=== PATIENT | male | born 1985 | race Caucasian/White ===

== ENCOUNTER 2019-05-07 03:44 | Emergency (ER) | payer BC, SELFPAY ==
[2019-05-07 03:47] VITALS: BP 149/94; PULSE 85; RESP 18; TEMP 36.4; O2SAT 100
--- NOTE | 2019-05-07 04:10 | ED.EPISTAXIS ---
HPI - Epistaxis General Chief complaint: Epistaxis Stated complaint: Nosebleed Time Seen by Provider: 05/07/19 04:09 History of Present Illness HPI Narrative: Awoke from sleep around 0300 with bleeding from the left nares. Attempted pressure and packing without success. bleeding stopped shortly prior to arrival. He recently recovered from the FLU. he denies any additional symptoms at this time. Related Data Allergies Allergy/AdvReac Type Severity Reaction Status Date / Time No Known Allergies Allergy Unverified 10/03/18 17:15 Review of Systems Review of Systems: All systems reviewed & are unremarkable except as noted in HPI and below Constitutional: Constitutional: Denies fever(s) and Denies weakness Eyes: Eyes: Denies change in vision ENT: Reports epistaxis and Denies sore throat Cardiovascular: Cardiovascular: Denies chest pain Respiratory: Respiratory: Denies dyspnea Gastrointestinal: Gastrointestinal: Denies nausea and Denies vomiting Neurologic: Denies dizziness and Denies weakness Exam Const: General: healthy appearing, no acute distress and alert Orientation/consciousness: patient oriented x3 Limitations: no limitations HENMT: Other: No active bleeding. site of recent bleeding seen over left nasal septum Resp: Effort & Inspection: normal respiratory effort Auscultation: clear to auscultation bilaterally Cardio: Rate: regular rate Rhythm: regular rhythm Neuro: General: patient oriented x3 and moves all extremities Speech: normal speech Psych: Affect: normal affect Course Vital Signs Vital signs: Vital Signs Temperature 36.4 C 05/07/19 03:47 Pulse Rate 85 05/07/19 03:47 Respiratory Rate 18 05/07/19 03:47 Blood Pressure 149/94 H 05/07/19 03:47 Pulse Oximetry 100 05/07/19 03:47 Temperature 36.4 C 05/07/19 03:47 Pulse Rate 87 05/07/19 04:42 Respiratory Rate 15 05/07/19 04:42 Blood Pressure 158/108 H 05/07/19 04:42 Pulse Oximetry 97 05/07/19 04:42 Discharge Plan Discharge Clinical Impression: Epistaxis Patient Disposition: Home, Self-Care Condition: Stable Instructions: Nosebleed (ED) Prescriptions: New sodium chloride [[place] Nasal] 0.65 % aerosol,spray 2 spray NASAL Q4H Qty: 50 RF: 0 Follow-up/Referrals: UNKNOWN,DOCTOR [Primary Care Provider] -
[2019-05-07 04:42] VITALS: BP 158/108; PULSE 87; RESP 15; O2SAT 97
[2019-05-07] MEDS: OXYMETAZOLINE HCL 0.05% NAS 15 ML BTL (*BKC) 2 SPRAY NASAL (05:14)
[2019-05-07 06:40] VITALS: BP 113/82; PULSE 78; RESP 19; O2SAT 95
== END 2019-05-07 06:40 | disposition home or self-care (01) ==
PROVIDERS: Emergency Provider Emergency Medicine
DX: R04.0 Epistaxis (principal)
CPT/HCPCS: 99283; A9270

== ENCOUNTER 2021-04-22 06:25 | Emergency (ER) | payer BC, SELFPAY ==
[2021-04-22 06:31] VITALS: BP 134/84; PULSE 92; RESP 16; TEMP 36.4; O2SAT 99
[2021-04-22 07:10] LABS: Basophils Percent Auto 0.1 % (0.2-1.2); Eosinophils Percent Auto 0.2 % (0-4.4); Hematocrit 46.6 % (42.0-52.0); Hemoglobin 16.6 g/dL (14.0-18.0); Immature Granulocyte Absolute 0.03 K/mm3 (0.00-0.031); Immature Granulocyte Percent A 0.2 % (0-0.5); Lymphocytes Absolute Auto 0.61 K/mm3 (0.9-3.2); Lymphocytes Percent Auto 4.8 % (18.3-44.2); Mean Corpuscular HGB Conc 35.6 g/dl (32-36); Mean Corpuscular Hemoglobin 29.6 pg (26-34); Mean Corpuscular Volume 83.1 fl (80-100); Mean Platelet Volume 10.5 fl (7.4-10.4); Monocytes Absolute Auto 0.5 K/mm3 (0.1-0.6); Monocytes Percent Auto 3.8 % (2.6-8.5); Neutrophils Absolute Auto 11.6 K/mm3 (1.3-6.7); Neutrophils Percent Auto 90.9 % (45.5-73.1); Platelet Count Result 159 k/mm3 (150-375); Red Blood Count 5.61 M/mm3 (4.6-6.20); Red Cell Distribution Width 12.4 % (11.5-14.5); White Blood Count 12.7 K/mm3 (4.5-10.0)
[2021-04-22 07:17] LABS: Alanine Aminotransferase 40 U/L (4-50); Albumin Level 4.9 g/dL (3.5-5.1); Alkaline Phosphatase 127 U/L (38-126); Anion Gap 12 mmol/L (8-16); Aspartate Amino Transferase 31 U/L (17-59); Bilirubin,Total 1.1 mg/dL (0.2-1.3); Blood Urea Nitrogen 21 mg/dL (9-20); Carbon Dioxide 25 mmol/L (22-30); Chloride 102 mmol/L (98-107); Estimated CRCL calculation 109 ml/min; Estimated Glomerular Filt Rate > 60; Glucose 167 mg/dL (65-110); Lipase 58 U/L (23-300); Potassium 3.9 mmol/L (3.4-5.0); Sodium 139 mmol/L (137-145)
[2021-04-22 08:17] LABS: Add Urine Microscopic? YES; Appearance Urine Clear (Clear); Bilirubin Urine Negative (Negative); Blood Urine Negative (Negative); Color Urine Yellow (Yellow); Glucose Urine UA Negative (Negative); Ketones Urine Trace mg/dL (Negative); Leukocyte Esterase Ur Negative LEU/UL (Negative); Mucus Urine Few /lpf; Nitrate Urine Negative (Negative); Protein Urine 1+ mg/dL (Negative); RBC Urine 0-2 /hpf (0-2); Squamous Epithelial Cell Urine Rare /hpf (Few); WBC Urine 0-3 /hpf
--- NOTE | 2021-04-22 08:17 | ED.GENADULT ---
HPI - General Adult General Chief complaint: Nausea/Vomiting/Diarrhea Stated complaint: vomiting since 8pm last night Time Seen by Provider: 04/22/21 07:36 Source: patient and RN notes reviewed Mode of arrival: ambulatory Limitations: no limitations History of Present Illness HPI narrative: Patient reports nausea, vomiting a lot, diarrhea 3-4 times since 8 PM last night. Patient reported that his daughter had similar symptoms 2 to 3 days ago. Patient had to doses of COVID-vaccine. History of hypertension. Does not smoke or drink or uses marijuana. Related Data Allergies Allergy/AdvReac Type Severity Reaction Status Date / Time No Known Allergies Allergy Verified 04/22/21 06:59 Review of Systems Review of Systems: CONSTITUTIONAL: Denies fever, chills, or sweats. EYES: Denies visual changes, redness, or discharge. ENT: Denies rhinorrhea, congestion, sore throat, or otalgia. CARDIOVASCULAR: Denies chest pain, palpitations, or edema. RESPIRATORY: Denies cough or dyspnea. GASTROINTESTINAL: Denies abdominal pain, nausea, vomiting, or diarrhea. GENITOURINARY: Nausea, vomiting and diarrhea SKIN: Denies rash or itching. MUSCULOSKELETAL: Denies back pain, joint pain, or myalgia. NEUROLOGIC: Denies headache, numbness, or weakness. PSYCHIATRIC: Denies anxiety or depression. Exam Narrative: General appearance: Well-developed, well-nourished Skin: Normal color Head: Normocephalic, nontraumatic Eyes: Clear conjunctiva ENT: Oropharynx normal, ears normal, nose normal Neck: Supple, nontender Chest and respiratory: Airway patent, no respiratory distress, no accessory muscle use Heart: Regular rate/rhythm Abdomen: Soft, slight diffuse tenderness,, no organomegaly, normal bowel sounds Vascular: Normal peripheral pulses, normal capillary refill. Musculoskeletal: Normal range of motion, nontender back Neurologic: Alert and oriented ?3, [employer] SUPPORT TECHNICIAN is normal as tested, no gross motor deficit Course Course Emergency Course: Improving Vital Signs Vital signs: Vital Signs Temperature 36.4 C 04/22/21 06:31 Pulse Rate 92 04/22/21 06:31 Respiratory Rate 16 04/22/21 06:31 Blood Pressure 134/84 04/22/21 06:31 Pulse Oximetry 99 04/22/21 06:31 Temperature 36.4 C 04/22/21 06:31 Pulse Rate 87 04/22/21 09:51 Respiratory Rate 16 04/22/21 06:31 Blood Pressure 120/82 04/22/21 10:05 Pulse Oximetry 99 04/22/21 06:31 Medical Decision Making Differential Diagnosis Differential Diagnosis: Viral gastroenteritis Vital Signs Vital Signs: Vital Signs Temperature 36.4 C 04/22/21 06:31 Pulse Rate 92 04/22/21 06:31 Respiratory Rate 16 04/22/21 06:31 Blood Pressure 134/84 04/22/21 06:31 Pulse Oximetry 99 04/22/21 06:31 Temperature 36.4 C 04/22/21 06:31 Pulse Rate 87 04/22/21 09:51 Respiratory Rate 16 04/22/21 06:31 Blood Pressure 120/82 04/22/21 10:05 Pulse Oximetry 99 04/22/21 06:31 Lab Data Result diagrams: 04/22/21 07:00 04/22/21 07:00 Labs: Lab Results 04/22/21 04/22/21 04/22/21 Range/Units 07:00 07:00 07:26 WBC 12.7 H (4.5-10.0) K/mm3 RBC 5.61 (4.6-6.20) M/mm3 Hgb 16.6 (14.0-18.0) g/dL Hct 46.6 (42.0-52.0) % MCV 83.1 (80-100) fl MCH 29.6 (26-34) pg MCHC 35.6 (32-36) g/dl RDW 12.4 (11.5-14.5) % Plt Count 159 (150-375) k/mm3 MPV 10.5 H (7.4-10.4) fl Immature Gran % (Auto) 0.2 (0-0.5) % Neut % (Auto) 90.9 H (45.5-73.1) % Lymph % (Auto) 4.8 L (18.3-44.2) % [place] % (Auto) 3.8 (2.6-8.5) % Eos % (Auto) 0.2 (0-4.4) % Baso % (Auto) 0.1 L (0.2-1.2) % Lymph # (Auto) 0.61 L (0.9-3.2) K/
[2021-04-22 08:18] LABS: Specific Grav Ur 1.032 (1.001-1.035)
[2021-04-22] MEDS: SODIUM CHLORIDE 0.9% IV 2,000 ML 999 ML IV CONT (08:20)
[2021-04-22] MEDS: ONDANSETRON INJ 4 MG/2 ML VIAL IV PUSH ×2 (08:20→11:36)
[2021-04-22 09:51] VITALS: BP 131/76; PULSE 87
[2021-04-22 10:05] VITALS: BP 114/69; BP 120/82
--- NOTE | 2021-04-22 10:48 | PC.NURSE ---
Still c/o nausea, no emesis since arrival to ed. ERP aware.
[2021-04-22 11:40] VITALS: BP 131/82; PULSE 90; RESP 12; O2SAT 99
== END 2021-04-22 11:41 | disposition home or self-care (01) ==
PROVIDERS: Emergency Medicine; Emergency Provider Emergency Medicine; PCP Internal Medicine
DX: K52.9 Noninfective gastroenteritis and colitis, unspecified (principal)
CPT/HCPCS: 36415; 80053; 81001; 83690; 85025; 96361; 96374; 96376; 99284; J2405; J7030

== ENCOUNTER 2022-12-03 09:26 | Outpatient (CLI) | payer BC, SELFPAY ==
[2022-12-03 10:45] LABS: Strep Group A RT-PCR NOT DETECTED (Negative)
[2022-12-03 10:59] LABS: Influenza A QL RT-PCR Negative (Negative); Influenza B QL RT-PCR Negative (Negative); SARS-CoV-2 RNA PCR Positive (Negative)
== END 2022-12-03 09:27 | disposition home or self-care (01) ==
PROVIDERS: PCP Internal Medicine; Visit Provider Internal Medicine
DX: J06.9 Acute upper respiratory infection, unspecified (principal); U07.1 COVID-19
CPT/HCPCS: 87502; 87635; 87651